=== PATIENT | male | born 1960 | race Caucasian/White ===

== ENCOUNTER 2021-07-07 02:31 | Outpatient (RCR) | payer MEDICAID, SELFPAY ==
[2021-07-07] MEDS: Normal Saline Flush 10 ML SYR IVP (14:39)
[2021-07-07] MEDS: Heparin 500 UNITS/5 ML SYRINGE IV (14:39)
[2021-07-07 14:51] LABS: Abs Immature Grans 0.02 10^3/uL (0.0-0.06); Absolute Basophil Count 0.09 10^3/uL (0.0-0.2); Absolute Eosinophil Count 0.47 10^3/uL (0.0-0.7); Absolute Lymphocyte Count 2.42 10^3/uL (1.2-3.4); Absolute Monocyte Count 0.93 10^3/uL (0.1-0.8); Absolute Neutrophil Count 6.93 10^3/uL (1.2-6.7); Basophils % 0.8; Eosinophils % 4.3; HCT 46.3 % (40.0-50.0); HGB 16.1 g/dL (13.5-17.5); Immature Grans % 0.2; Lymphocytes % 22.3; MCH 31.5 pg (27.0-33.0); MCHC 34.8 % (32.0-36.0); MCV 90.6 fL (80-95); MPV 9.3 fL (8.0-11.0); Monocytes % 8.6; Neutrophils % 63.8; Nucleated RBC 0 %; Platelet Count 258 10^3/uL (130-400); RBC 5.11 10^6/uL (4.36-5.78); RDW 11.7 % (11.8-14.1); RDW-SD 39.3 fL; WBC 10.86 10^3/uL (4.4-10.8)
[2021-07-07 15:06] LABS: ALT 17 U/L (16-63); AST 16 U/L (15-37); Alkaline Phosphatase 97 U/L (46-116); Anion Gap 9.4 mmol/L (3-11); BUN 4 mg/dL (7-18); Bilirubin, Total 0.5 mg/dL (0.2-1.0); CO2 26.6 mmol/L (21.0-32.0); CREATININE 0.7 mg/dL (0.70-1.30); Calcium 9.4 mg/dL (8.5-10.1); Chloride 94 mmol/L (98-107); Glucose 106 mg/dL (74-106); Potassium 3.6 mmol/L (3.5-5.1); Sodium 130 mmol/L (136-145)
== END 2021-07-10 23:59 | disposition home or self-care (01) ==
LOC: INF 02:31
PROVIDERS: PCP Family Medicine; Visit Provider Internal Medicine Hematology & Oncology
DX: C32.9 Malignant neoplasm of larynx, unspecified (principal); I10 Essential (primary) hypertension; C44.311 Basal cell carcinoma of skin of nose; Z45.2 Encounter for adjustment and management of vascular access device
CPT/HCPCS: 36591; 80053; 85025

== ENCOUNTER 2021-07-22 11:15 | Emergency (ER) | payer MEDICAID, SELFPAY ==
[2021-07-22 11:41] VITALS: BP 165/74; PULSE 89; RESP 16; TEMP 37.1; O2SAT 98
[2021-07-22 12:53] VITALS: BP 134/82; PULSE 90; O2SAT 95
--- NOTE | 2021-07-22 13:19 | ED.GENADUL_ITS ---
Discharge Plan Disposition Patient Disposition: HOME Condition: Stable Discharge Details Clinical Impression: Attention to G-tube Primary Care Provider: Leonel Thurston ED Provider: Matthew Robles Home Meds and New Rx's Prescriptions: Continued multivitamin Tablet 1 tab PO DAILY 0RF atorvastatin 10 mg Tablet 10 mg PO DAILY 0RF lisinopril 40 mg Tablet 40 mg PO DAILY 0RF hydrochlorothiazide 12.5 mg Tablet 12.5 mg PO DAILY 0RF Discharge Instructions Additional Instructions: Please follow-up with your oncology team. Please contact your primary care physician to arrange follow-up. Return to the ER immediately for any worsening or new concerning symptoms. Referrals: Leonel Thurston [Primary Care Provider] - Discharge Data Discharge Date/Time-TO BE ENTERED AT DEPARTURE: 07/22/21 15:19 Medical Decision Making Nursing notes gtube dislodged fully on attempt to flush. Nursing placed hernández as place domnigo. Patient was seen by Dr. Mora. Hernández catheter has been displaced. G-tube site now closing. She recommends discharge without follow-up for replacement. Patient does not need emergent access as he is still able to tolerate p.o. intake HPI General Mode of arrival: ambulatory . Date/Time Provider Initiated Documentation: 07/22/21 11:49 . Limitations to Documentation: no limitations . Information obtained by: patient . HPI Narrative: 61-year-old male presents with chief complaint of G-tube malfunction. Patient has history of laryngeal cancer and [place] [facility] [place] were [place] yesterday cancer center. He notes after stitch removal he had some discomfort. He flushed the tube this morning and noticed that saline was leaking out from skin. He is concerned that it is no longer flushing properly. Symptoms severe. No modifiers. No associate abdominal pain. Related Data Home Medications Medication Instructions Recorded Confirmed atorvastatin 10 mg tablet 10 mg PO DAILY 07/22/21 07/22/21 hydrochlorothiazide 12.5 mg tablet 12.5 mg PO DAILY 07/22/21 07/22/21 lisinopril 40 mg tablet 40 mg PO DAILY 07/22/21 07/22/21 multivitamin 1 tab PO DAILY 07/22/21 07/22/21 Allergies Allergy/AdvReac Type Severity Reaction Status Date / Time No Known Allergies Allergy Unverified 07/22/21 11:45 General Stated Complaint: Abd Prob NATASHA: 3 Review of Systems All systems reviewed & are unremarkable except as noted in HPI and below Constitutional Constitutional: Denies fever(s) Gastrointestinal Gastrointestinal: Denies nausea and Denies vomiting PFSH All Active Problems Attention to G-tube (Acute) Social History Smoking/Tobacco Use Status: Current every day Tobacco Type: cigarettes Smoking risk assessment performed?: Yes Substance use type: does not use Exam Const General: cooperative and no acute distress GI Palpation: soft, not firm, no guarding, no masses, not rigid and nontender Other: gtube appears intact, no discharge Skin General skin exam: no rashes or lesions noted and no erythema Course Vital Signs Vital signs: Vital Signs Temperature 37.1 C 07/22/21 11:41 Pulse 89 07/22/21 11:41 Respiratory Rate 16 07/22/21 11:41 Blood Pressure 165/74 H 07/22/21 11:41 Pulse Oximetry 98 07/22/21 11:41 Temperature 37.1 C 07/22/21 11:41 Temperature Source Skin 07/22/21 11:41 Pulse 90 07/22/21 12:53 Respiratory Rate 16 07/22/21 11:41 Respiratory Effort 07/22/21 11:41 Blood Pressure 134/82 07/22/21 12:53 Blood Pressure Position Sitting 07/22/21 11:41 Pulse Oximetry 95 07/22/21 12:53 Oxygen Delivery Method Room Air 07/22/21 12:53 Oxygen Flow Rate 0 07/22/21 12:53 Pain Level 0 07/22/21 12:54
--- NOTE | 2021-07-22 14:14 | NUR.NOTE ---
Nursing Note: [id number] SYRINGE FOR FLUSH FROM [facility], ATTEMPT TO FLUSH FEEDING TUBE & TUBE DISLODGED. pROVIDER NOTIFIED, 12FR CRUM CATHETER IN PLACE TO HOLD STOMA OPEN, PT DENIES PAIN, SURGERY PAGED.
[2021-07-22 14:15] VITALS: BP 157/80; PULSE 68; RESP 18; O2SAT 98
== END 2021-07-22 15:19 | disposition home or self-care (01) ==
PROVIDERS: Emergency Provider Student in an Organized Health Care Education/Training Program; PCP Family Medicine
DX: Z43.1 Encounter for attention to gastrostomy (principal)
CPT/HCPCS: 99281

== ENCOUNTER 2021-08-04 04:13 | Outpatient (RCR) | payer MEDICAID, SELFPAY ==
[2021-07-14] MEDS: Normal Saline Flush 10 ML SYR IVP (10:15)
[2021-07-14 10:25] LABS: Abs Immature Grans 0.05 10^3/uL (0.0-0.06); Absolute Basophil Count 0.06 10^3/uL (0.0-0.2); Absolute Eosinophil Count 0.18 10^3/uL (0.0-0.7); Absolute Lymphocyte Count 1.53 10^3/uL (1.2-3.4); Absolute Monocyte Count 0.88 10^3/uL (0.1-0.8); Absolute Neutrophil Count 6.32 10^3/uL (1.2-6.7); Basophils % 0.7; HCT 44.4 % (40.0-50.0); HGB 15.6 g/dL (13.5-17.5); Immature Grans % 0.6; MCHC 35.1 % (32.0-36.0); MPV 9.5 fL (8.0-11.0); Monocytes % 9.8; Neutrophils % 69.9; Nucleated RBC 0 %; Platelet Count 234 10^3/uL (130-400); RBC 4.88 10^6/uL (4.36-5.78); RDW 11.7 % (11.8-14.1); WBC 9.02 10^3/uL (4.4-10.8)
[2021-07-14 11:04] LABS: ALT 25 U/L (16-63); AST 19 U/L (15-37); Alkaline Phosphatase 92 U/L (46-116); Anion Gap 8.4 mmol/L (3-11); BUN 10 mg/dL (7-18); Bilirubin, Total 0.9 mg/dL (0.2-1.0); CO2 27.6 mmol/L (21.0-32.0); CREATININE 0.8 mg/dL (0.70-1.30); Calcium 9.5 mg/dL (8.5-10.1); Chloride 92 mmol/L (98-107); Glucose 131 mg/dL (74-106); Potassium 3.7 mmol/L (3.5-5.1); Sodium 128 mmol/L (136-145); Total Protein 7.8 g/dL (6.4-8.2)
[2021-07-23] MEDS: Normal Saline Flush 10 ML SYR IVP (10:40)
[2021-07-23 11:08] LABS: Abs Immature Grans 0.04 10^3/uL (0.0-0.06); Absolute Basophil Count 0.04 10^3/uL (0.0-0.2); Absolute Eosinophil Count 0.08 10^3/uL (0.0-0.7); Absolute Lymphocyte Count 0.75 10^3/uL (1.2-3.4); Absolute Monocyte Count 0.97 10^3/uL (0.1-0.8); Absolute Neutrophil Count 6.82 10^3/uL (1.2-6.7); Basophils % 0.5; Eosinophils % 0.9; HCT 40.6 % (40.0-50.0); HGB 14.4 g/dL (13.5-17.5); Immature Grans % 0.5; Lymphocytes % 8.6; MCHC 35.5 % (32.0-36.0); MCV 90.2 fL (80-95); MPV 9.7 fL (8.0-11.0); Monocytes % 11.1; Neutrophils % 78.4; Nucleated RBC 0 %; Platelet Count 193 10^3/uL (130-400); RDW 11.4 % (11.8-14.1); RDW-SD 37.4 fL
[2021-07-23 11:21] LABS: ALT 20 U/L (16-63); AST 14 U/L (15-37); Albumin 3.8 g/dL (3.4-5.0); Alkaline Phosphatase 75 U/L (46-116); Anion Gap 8.1 mmol/L (3-11); BUN 10 mg/dL (7-18); Bilirubin, Total 0.7 mg/dL (0.2-1.0); CO2 28.9 mmol/L (21.0-32.0); CREATININE 0.8 mg/dL (0.70-1.30); Calcium 9.2 mg/dL (8.5-10.1); Chloride 90 mmol/L (98-107); Glucose 123 mg/dL (74-106); Magnesium 1.9 mg/dL (1.8-2.4); Potassium 3.4 mmol/L (3.5-5.1); Sodium 127 mmol/L (136-145); Total Protein 7.4 g/dL (6.4-8.2)
[2021-07-28] MEDS: Normal Saline Flush 10 ML SYR IVP (13:55)
[2021-07-28] MEDS: Heparin 500 UNITS/5 ML SYRINGE IV (13:55)
[2021-07-28 14:04] LABS: Abs Immature Grans 0.02 10^3/uL (0.0-0.06); Absolute Basophil Count 0.04 10^3/uL (0.0-0.2); Absolute Eosinophil Count 0.06 10^3/uL (0.0-0.7); Absolute Lymphocyte Count 0.95 10^3/uL (1.2-3.4); Absolute Monocyte Count 0.71 10^3/uL (0.1-0.8); Absolute Neutrophil Count 6.07 10^3/uL (1.2-6.7); Basophils % 0.5; Eosinophils % 0.8; HCT 40.1 % (40.0-50.0); HGB 14.4 g/dL (13.5-17.5); Immature Grans % 0.3; Lymphocytes % 12.1; MCH 32.4 pg (27.0-33.0); MCHC 35.9 % (32.0-36.0); MCV 90.1 fL (80-95); MPV 9.7 fL (8.0-11.0); Neutrophils % 77.3; Platelet Count 165 10^3/uL (130-400); RBC 4.45 10^6/uL (4.36-5.78); RDW 11.5 % (11.8-14.1); RDW-SD 37.8 fL; WBC 7.85 10^3/uL (4.4-10.8)
[2021-07-28 14:17] LABS: ALT 27 U/L (16-63); AST 18 U/L (15-37); Albumin 3.9 g/dL (3.4-5.0); Alkaline Phosphatase 65 U/L (46-116); Anion Gap 8.3 mmol/L (3-11); BUN 14 mg/dL (7-18); Bilirubin, Total 0.6 mg/dL (0.2-1.0); CO2 28.7 mmol/L (21.0-32.0); CREATININE 0.9 mg/dL (0.70-1.30); Calcium 9.7 mg/dL (8.5-10.1); Chloride 90 mmol/L (98-107); Glucose 103 mg/dL (74-106); Magnesium 1.5 mg/dL (1.8-2.4); Potassium 3.4 mmol/L (3.5-5.1); Sodium 127 mmol/L (136-145); Total Protein 7.5 g/dL (6.4-8.2)
[2021-08-04] MEDS: Normal Saline Flush 10 ML SYR IVP (10:55)
[2021-08-04 11:04] LABS: Abs Immature Grans 0.02 10^3/uL (0.0-0.06); Absolute Basophil Count 0.02 10^3/uL (0.0-0.2); Absolute Eosinophil Count 0.05 10^3/uL (0.0-0.7); Absolute Lymphocyte Count 0.61 10^3/uL (1.2-3.4); Absolute Monocyte Count 0.49 10^3/uL (0.1-0.8); Absolute Neutrophil Count 3.57 10^3/uL (1.2-6.7); Basophils % 0.4; Eosinophils % 1.1; HGB 13.1 g/dL (13.5-17.5); Immature Grans % 0.4; Lymphocytes % 12.8; MCH 32.7 pg (27.0-33.0); MCHC 36.4 % (32.0-36.0); MCV 89.8 fL (80-95); MPV 9.9 fL (8.0-11.0); Monocytes % 10.3; Platelet Count 115 10^3/uL (130-400); RBC 4.01 10^6/uL (4.36-5.78); RDW 11.6 % (11.8-14.1); WBC 4.76 10^3/uL (4.4-10.8)
[2021-08-04 11:14] LABS: ALT 25 U/L (16-63); AST 20 U/L (15-37); Albumin 3.8 g/dL (3.4-5.0); Alkaline Phosphatase 63 U/L (46-116); Anion Gap 7.4 mmol/L (3-11); BUN 16 mg/dL (7-18); Bilirubin, Total 0.8 mg/dL (0.2-1.0); CO2 31.6 mmol/L (21.0-32.0); Chloride 89 mmol/L (98-107); Glucose 133 mg/dL (74-106); Magnesium 1.4 mg/dL (1.8-2.4); Potassium 3.3 mmol/L (3.5-5.1); Sodium 128 mmol/L (136-145); Total Protein 7.3 g/dL (6.4-8.2)
== END 2021-08-09 23:59 | disposition home or self-care (01) ==
LOC: INF 04:13
PROVIDERS: PCP Family Medicine; Visit Provider Internal Medicine Hematology & Oncology
DX: Z45.2 Encounter for adjustment and management of vascular access device (principal); C44.311 Basal cell carcinoma of skin of nose; C32.9 Malignant neoplasm of larynx, unspecified; I10 Essential (primary) hypertension
CPT/HCPCS: 36591; 80053; 83735; 85025

== ENCOUNTER 2021-08-18 01:04 | Outpatient (RCR) | payer MEDICAID, SELFPAY ==
[2021-08-11] MEDS: Normal Saline Flush 10 ML SYR IVP (11:45)
[2021-08-11 11:54] LABS: Abs Immature Grans 0.01 10^3/uL (0.0-0.06); Absolute Basophil Count 0.02 10^3/uL (0.0-0.2); Absolute Eosinophil Count 0.03 10^3/uL (0.0-0.7); Absolute Lymphocyte Count 0.37 10^3/uL (1.2-3.4); Absolute Monocyte Count 0.25 10^3/uL (0.1-0.8); Absolute Neutrophil Count 1.59 10^3/uL (1.2-6.7); Basophils % 0.9; Eosinophils % 1.3; HCT 30.7 % (40.0-50.0); HGB 10.7 g/dL (13.5-17.5); Immature Grans % 0.4; Lymphocytes % 16.3; MCH 31.9 pg (27.0-33.0); MCHC 34.9 % (32.0-36.0); MCV 92 fL (80-95); Neutrophils % 70.1; RBC 3.35 10^6/uL (4.36-5.78); RDW 11.9 % (11.8-14.1); RDW-SD 39.8 fL; WBC 2.27 10^3/uL (4.4-10.8)
[2021-08-11 12:05] LABS: ALT 25 U/L (16-63); AST 18 U/L (15-37); Albumin 3.5 g/dL (3.4-5.0); Alkaline Phosphatase 60 U/L (46-116); Anion Gap 7.4 mmol/L (3-11); BUN 11 mg/dL (7-18); Bilirubin, Total 0.4 mg/dL (0.2-1.0); CO2 29.6 mmol/L (21.0-32.0); CREATININE 0.8 mg/dL (0.70-1.30); Calcium 9.2 mg/dL (8.5-10.1); Chloride 95 mmol/L (98-107); Glucose 103 mg/dL (74-106); Magnesium 1.5 mg/dL (1.8-2.4); Potassium 4.1 mmol/L (3.5-5.1); Sodium 132 mmol/L (136-145); Total Protein 6.8 g/dL (6.4-8.2)
[2021-08-11 12:10] LABS: Platelet Count 87 10^3/uL (130-400)
[2021-08-18] MEDS: Normal Saline Flush 10 ML SYR IVP (10:58)
[2021-08-18 11:05] LABS: Abs Immature Grans 0.01 10^3/uL (0.0-0.06); Absolute Basophil Count 0.01 10^3/uL (0.0-0.2); Absolute Eosinophil Count 0.03 10^3/uL (0.0-0.7); Absolute Lymphocyte Count 0.33 10^3/uL (1.2-3.4); Absolute Monocyte Count 0.21 10^3/uL (0.1-0.8); Absolute Neutrophil Count 0.61 10^3/uL (1.2-6.7); Basophils % 0.8; Eosinophils % 2.5; HCT 27.4 % (40.0-50.0); HGB 9.7 g/dL (13.5-17.5); Immature Grans % 0.8; Lymphocytes % 27.5; MCH 32.9 pg (27.0-33.0); MCHC 35.4 % (32.0-36.0); MCV 93 fL (80-95); MPV 9.7 fL (8.0-11.0); Monocytes % 17.5; Neutrophils % 50.9; Platelet Count 115 10^3/uL (130-400); RBC 2.95 10^6/uL (4.36-5.78); RDW 12.1 % (11.8-14.1); RDW-SD 39.8 fL
[2021-08-18 11:17] LABS: Diff Comment Diff Reviewed; RBC Morphology Normal
[2021-08-18 11:21] LABS: ALT 21 U/L (16-63); AST 13 U/L (15-37); Albumin 3.4 g/dL (3.4-5.0); Alkaline Phosphatase 58 U/L (46-116); Anion Gap 6.6 mmol/L (3-11); BUN 12 mg/dL (7-18); Bilirubin, Total 0.4 mg/dL (0.2-1.0); CO2 28.4 mmol/L (21.0-32.0); CREATININE 0.8 mg/dL (0.70-1.30); Calcium 9.1 mg/dL (8.5-10.1); Chloride 96 mmol/L (98-107); Glucose 105 mg/dL (74-106); Magnesium 1.8 mg/dL (1.8-2.4); Potassium 4.1 mmol/L (3.5-5.1); Sodium 131 mmol/L (136-145); Total Protein 6.9 g/dL (6.4-8.2)
== END 2021-09-09 23:59 | disposition home or self-care (01) ==
LOC: INF 01:04
PROVIDERS: PCP Family Medicine; Visit Provider Internal Medicine Hematology & Oncology
DX: C32.9 Malignant neoplasm of larynx, unspecified (principal); C09.9 Malignant neoplasm of tonsil, unspecified; Z45.2 Encounter for adjustment and management of vascular access device; C44.311 Basal cell carcinoma of skin of nose; I10 Essential (primary) hypertension
CPT/HCPCS: 36591; 80053; 83735; 85025

== ENCOUNTER 2025-02-23 13:31 | Outpatient (CLI) | payer MEDICAID, SELFPAY ==
[2025-02-23 14:32] LABS: TSH 3.02 uIU/mL (0.55-4.78)
== END 2025-02-23 13:32 | disposition home or self-care (01) ==
PROVIDERS: PCP Family Medicine; Visit Provider Nurse Practitioner
DX: C32.9 Malignant neoplasm of larynx, unspecified (principal); E03.9 Hypothyroidism, unspecified
CPT/HCPCS: 36415; 84443